=== PATIENT | male | born 1945 | race Caucasian/White ===

== ENCOUNTER 2021-08-23 11:35 | Inpatient (IN) | payer MEDICARE ==
[2021-08-23] MEDS ORDERED: ACETAMINOPHEN TAB 500 MG TAB PO STA (12:23)
[2021-08-23] MEDS ORDERED: AMPICILLIN-SULBACTAM 3 GM in SODIUM CHLORIDE 0.9% 100 ML IVPB STA (12:24)
[2021-08-23] MEDS ORDERED: VANCOMYCIN IV PER PHARMACY 1 EACH MISC MISCELLANE PRN (12:25)
--- NOTE | 2021-08-23 12:45 | XR ---
EXAMINATION TYPE: XR chest 2V DATE OF EXAM: 08/23/2021 COMPARISON: None HISTORY: 75-year-old male with fever and failure to thrive TECHNIQUE: AP and lateral views FINDINGS: Heart limits of normal in size atherosclerotic calcifications within the aortic arch. Mild hyperinfla tion. Mild patchy left basilar opacity. Some strandy right basilar atelectasis. Otherwise, no consoli dation or pleural effusion. IMPRESSION: Mild hyperinflation may relate to depth of inspiration or underlying emphysema. There is some mild pa tchy atelectasis versus developing pneumonia at the left base.
[2021-08-23] MEDS ORDERED: VANCOMYCIN 1,250 MG in SODIUM CHLORIDE 0.9% 250 ML IVPB ONE (13:00)
[2021-08-23 13:01] LABS: INR 0.9 (<1.2); Partial Thromboplastin Time 24.2 sec (22.0-30.0); Prothrombin Time 9.7 sec (9.0-12.0)
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
[2021-08-23 13:14] LABS: ALT 24 U/L (4-49); AST 38 U/L (17-59); African American GFR (CKD) >90 (>60 ml/min/1.73 sqM); Albumin 3.8 g/dL (3.5-5.0); Alkaline Phosphatase 110 U/L (38-126); Anion Gap 8 mmol/L; Blood Urea Nitrogen 11 mg/dL (9-20); Calcium 8.7 mg/dL (8.4-10.2); Carbon Dioxide 28 mmol/L (22-30); Chloride 96 mmol/L (98-107); Glucose 180 mg/dL (74-99); Non-African American GFR(CKD) 87 (>60 ml/min/1.73 sqM); Potassium 3.9 mmol/L (3.5-5.1); Sodium 132 mmol/L (137-145); Total Bilirubin 0.6 mg/dL (0.2-1.3)
[2021-08-23 13:18] LABS: HCT 46.9 % (39.0-53.0); HGB 15.9 gm/dL (13.0-17.5); MCH 32.3 pg (25.0-35.0); MCHC 33.8 g/dL (31.0-37.0); MCV 95.6 fL (80.0-100.0); Platelet Count 117 k/uL (150-450); RBC 4.91 m/uL (4.30-5.90); RDW 12.9 % (11.5-15.5); WBC 6.4 k/uL (3.8-10.6)
[2021-08-23] MEDS: SODIUM CHLORIDE 0.9% 1,000 ML IV SCH (13:20)
[2021-08-23] MEDS: valACYclovir HCL 1,000 MG TABLET PO SCH ×2 (13:21→22:51)
[2021-08-23 14:22] LABS: Lymphocytes # (M) 0.32 k/uL (1.0-4.8); Monocytes # (M) 0.58 k/uL (0-1.0); Neutrophils % (M) 86 %; Nucleated Red Blood Cells 0 /100 WBC (0-0); Total Cells Counted 100
[2021-08-23 14:23] LABS: Anisocytosis (M) Present; Poikilocytosis (M) Present
[2021-08-23] MEDS ORDERED: MORPHINE SULFATE 4 MG/ML SYRINGE IV PRN (14:44)
[2021-08-23] MEDS ORDERED: NALOXONE 0.4 MG/ML 1 ML VIAL IV PRN (14:44)
[2021-08-23] MEDS ORDERED: ACETAMINOPHEN TAB 325 MG TAB PO PRN (14:44)
[2021-08-23 20:47] LABS: Glucose,Whole Blood 103 mg/dL (75-99)
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
[2021-08-23] MEDS: AMPICILLIN-SULBACTAM 3 GM in SODIUM CHLORIDE 0.9% 100 ML IVPB SCH (22:52)
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
[2021-08-24] MEDS ORDERED: VANCOMYCIN 1,250 MG in SODIUM CHLORIDE 0.9% 250 ML IVPB SCH (03:00)
[2021-08-24] MEDS: AMPICILLIN-SULBACTAM 3 GM in SODIUM CHLORIDE 0.9% 100 ML IVPB SCH ×3 (06:06→21:23)
[2021-08-24 06:46] LABS: African American GFR (CKD) >90 (>60 ml/min/1.73 sqM); Anion Gap 3 mmol/L; Blood Urea Nitrogen 13 mg/dL (9-20); Carbon Dioxide 24 mmol/L (22-30); Chloride 105 mmol/L (98-107); Glucose 115 mg/dL (74-99); Non-African American GFR(CKD) >90 (>60 ml/min/1.73 sqM); Potassium 3.9 mmol/L (3.5-5.1); Sodium 132 mmol/L (137-145)
[2021-08-24 07:26] LABS: Glucose,Whole Blood 102 mg/dL (75-99)
[2021-08-24] MEDS: SODIUM CHLORIDE 0.9% 1,000 ML IV SCH ×2 (07:51→10:07)
[2021-08-24 09:27] LABS: Basophils # (A) 0.02 X 10*3/uL (0.00-0.10); Basophils % (A) 0.3 %; Eosinophils # (A) 0.02 X 10*3/uL (0.04-0.35); Eosinophils % (A) 0.3 %; HCT 41.5 % (39.6-50.0); HGB 13.7 g/dL (13.0-17.0); Immature Grans, Automated 0.3 %; Lymphocytes # (A) 1.43 X 10*3/uL (0.90-5.00); Lymphocytes % (A) 20.7 %; MCH 31.8 pg (27.0-32.0); MCV 96.3 fL (80.0-97.0); Mean Platelet Volume 10.3 fL (9.5-12.2); Monocytes # (A) 0.94 X 10*3/uL (0.20-1.00); Monocytes % (A) 13.6 %; NRBC Per 100 WBC 0 /100 WBCS (0.0-0.0); Neutrophils # (A) 4.49 X 10*3/uL (1.80-7.70); Neutrophils % (A) 64.8 %; Platelet Count 107 X 10*3/uL (140-440); RBC 4.31 X 10*6/uL (4.40-5.60); RDW 12.6 % (11.5-14.5); WBC 6.92 X 10*3/uL (4.50-10.00)
[2021-08-24] MEDS: valACYclovir HCL 1,000 MG TABLET PO SCH ×2 (11:33→21:23)
[2021-08-24] MEDS: HEPARIN SODIUM,PORCINE/PF 5,000 UNIT/0.5 ML SYRINGE SQ SCH ×2 (11:33→21:23)
[2021-08-24 11:49] LABS: Glucose,Whole Blood 119 mg/dL (75-99)
[2021-08-24 17:34] LABS: Glucose,Whole Blood 135 mg/dL (75-99)
[2021-08-24 20:54] LABS: Glucose,Whole Blood 233 mg/dL (75-99)
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
[2021-08-25] MEDS: AMPICILLIN-SULBACTAM 3 GM in SODIUM CHLORIDE 0.9% 100 ML IVPB SCH (05:31)
[2021-08-25] MEDS: SODIUM CHLORIDE 0.9% 1,000 ML IV SCH ×2 (05:31→17:38)
[2021-08-25 07:39] LABS: Glucose,Whole Blood 109 mg/dL (75-99)
[2021-08-25] MEDS: HEPARIN SODIUM,PORCINE/PF 5,000 UNIT/0.5 ML SYRINGE SQ SCH ×2 (08:33→19:41)
[2021-08-25] MEDS: valACYclovir HCL 1,000 MG TABLET PO SCH ×3 (08:34→23:13)
[2021-08-25 11:44] LABS: Glucose,Whole Blood 125 mg/dL (75-99)
[2021-08-25] MEDS ORDERED: SERTRALINE 25 MG TAB PO STA (13:00)
--- NOTE | 2021-08-25 13:16 | P.CN ---
Psychiatric Consult - . Consult date: 08/25/21 Consult:: 08/25/21 13:15 IDENTIFYING DATA: This patient is a , on Social Security, 75-year-old male with no significant psychiatric history who presented to the hospital for a wound over his left chest. HISTORY OF PRESENT ILLNESS: The patient presented to the hospital on 08/23/2021 for wound over his left chest. The patient is a limited historian due to his difficulty with hearing as well as his baseline mental status. Psychiatry has been consulted for evaluation of depression, mental capacity, and dementia. Upon evaluation by this provider, the patient is alert and oriented to self only. He believes that he was currently in [place] and was limited in providing any significant history. He replied in one word answers and often not in context with the question being asked of him. The patient however was able to identify his son as somebody who can provide history. This provider spoke with the patient's son Kyle Castano Jr reports that the patient has been displaying signs of depression since his 11 years ago. The son reports that the patient spends most of his day sleeping in, and refusing to get out of bed. He reports that furthermore the patient has not been showering or addressing any of his hygiene. He denies any history of suicidal or homicidal ideation, intention, and/or plan from the patient. In regards to patient behaviors, the patient's son notes that the patient has significant history of a gambling problem. He reports that this patient lives with him currently because the patient was left his own devices, he would waste all his money on scratch cards. The patient's son does not identify any significant history of psychosis or bipolar disorder. PAST PSYCHIATRIC HISTORY: As per son, the patient has no significant psychiatric history. Patient's son reports that the patient has not been previously prescribed any psychotropic medications to his knowledge. The patient's son reports that the patient has not had any previous psychiatric hospitalizations. The patient's son reports that the patient has no previous suicide attempts to his knowledge or is open with any outpatient psychiatric treatment. PAST MEDICAL HISTORY: Past Medical History: No Reported History History of Any Multi-Drug Resistant Organisms: None Reported Past Surgical History: No Surgical Hx Reported Past Psychological History: Unable to Obtain Smoking Status: Current every day smoker Past Alcohol Use History: None Reported Past Drug Use History: None Reported ALLERGIES: NO KNOWN DRUG ALLERGIES CHEMICAL DEPENDENCY HISTORY: The patient's son reports that the patient smokes approximate one pack per day of tobacco. He reports that the patient stop drinking approximately year ago. He denies any significant history of marijuana or illicit drug use. However, the patient's son is concerned with the patient's caffeine intake and reports that the patient drinks a significant amount of caffeine (>5 caffeinated beverages a day). FAMILY PSYCHIATRIC/SUBSTANCE USE HISTORY: The patient's son reports that there is a family history of depression. SOCIAL HISTORY: Patient is after his 11 years ago at age 66. He currently lives with his son. He is currently receiving Social Security. The patient's son reports that his mother who works at [employer] was the main source of income in the family. MENTAL STATUS EXAM Appearance: Patient appears to be stated age is alert, pleasant, and attempts to cooperate Patient appears to have poor hygiene and grooming wearing hospital gown with fair eye contact. Behavior: Patient is calmly lying in bed without any agitated behavior. Patient is hard of hearing. Speech: Patient's speech is nonspontaneous and also with one-word replies that are not in context with the questions being asked. Mood/Affect: Patient reports their mood is "okay", affect is blunted. Suicidality/Homicidality: Patient denies having any suicidal or homicidal ideation intent or plan. Perceptions: Unable to assess. Though content/process: Unable to assess thought content. [place] and minimal. Memory and concentration: Patient is alert and oriented to self only. Concentration appears to be grossly poor. Judgment and insight: Poor. IMPRESSIONS: Major depressive disorder, recurrent, moderate to severe Vitamin B12 deficiency Neurocognitive disorder, unspecified PLAN: -At this time patient DOES NOT meet criteria for inpatient psychiatric admission. -At this time, the patient appears to not have capacity for medical decision- making. He is unable to appropriately state his condition for which she is being treated for as well as the risks, benefits, and treatment alternatives. -Delirium precautions recommended with patient including - avoiding use of narcotics and [employer] PIL[employer] sedatives, limit anticholinergic medications when possible, frequent re-orientation, minimize use of restraints, open window shades during the day and close them at night -Would recommend the following medication changes/additions: We will start Zoloft 12.5 milligrams by mouth daily for depression/anxiety with plans to titrate 25 mg tomorrow -Will continue to follow along 08/25/21 13:16
[2021-08-25 17:24] LABS: Glucose,Whole Blood 81 mg/dL (75-99)
[2021-08-25 20:48] LABS: Glucose,Whole Blood 131 mg/dL (75-99)
--- NOTE | 2021-08-25 22:18 | P.PN ---
Subjective Progress Note Date: 08/24/21 Principal diagnosis: Left upper chest herpes zoster Patient is a 75-year-old male presenting to the hospital with vesicular rash involving the left upper chest and some extension to the left upper arm patient had been diagnosed with herpes zoster. On today's evaluation that is 08/24/2021, the patient denies having any fever or chills, denies any worsening pain to the left upper chest rash area no worsening rash has been noticed for nausea no vomiting no abdominal pain and no diarrhea Objective - Vital Signs Vital signs: Vital Signs Temp 97.3 F L 08/24/21 07:59 Pulse 80 08/24/21 07:59 Resp 18 08/24/21 07:59 BP 93/51 08/24/21 07:59 Pulse Ox 96 08/24/21 07:59 Intake & Output 08/23/21 08/24/21 08/24/21 18:59 06:59 18:59 Intake Total 200 Balance 200 Weight 74.843 kg Intake: Oral 200 Other: Voiding Method Diaper Diaper Incontinent Incontinent # Voids 2 2 - Exam General description is an elderly male lying in bed in no distress. Respiratory system:Unlabored breathing, decreased intensity in breath sounds. No wheeze. Heart S1, S2. Regular rate and rhythm. Abdomen soft, no tenderness. SKIN: Left upper chest and left upper arm rash with no extension no significant redness - Labs CBC & Chem 7: 08/24/21 06:11 08/24/21 06:11 Labs: Abnormal Lab Results - Last 24 Hours (Table) 08/23/21 08/23/21 08/23/21 Range/Units 12:26 12:26 12:26 RBC (4.40-5.60) X 10*6/uL Plt Count 117 L (150-450) k/uL Lymphocytes # (Manual) 0.32 L (1.0-4.8) k/uL Eosinophils # (0.04-0.35) X 10*3/uL Sodium 132 L (137-145) mmol/L Chloride 96 L (98-107) mmol/L Glucose 180 H (74-99) mg/dL POC Glucose (mg/dL) (75-99) mg/dL Plasma Lactic Acid Pierre 2.7 H* (0.7-2.0) mmol/L Calcium (8.4-10.2) mg/dL 08/23/21 08/24/21 08/24/21 Range/Units 20:46 06:11 06:11 RBC 4.31 L (4.40-5.60) X 10*6/uL Plt Count 107 L (150-450) k/uL Lymphocytes # (Manual) (1.0-4.8) k/uL Eosinophils # 0.02 L (0.04-0.35) X 10*3/uL Sodium 132 L (137-145) mmol/L Chloride (98-107) mmol/L Glucose 115 H (74-99) mg/dL POC Glucose (mg/dL) 103 H (75-99) mg/dL Plasma Lactic Acid Pierre (0.7-2.0) mmol/L Calcium 8.0 L (8.4-10.2) mg/dL 08/24/21 Range/Units 07:24 RBC (4.40-5.60) X 10*6/uL Plt Count (150-450) k/uL Lymphocytes # (Manual) (1.0-4.8) k/uL Eosinophils # (0.04-0.35) X 10*3/uL Sodium (137-145) mmol/L Chloride (98-107) mmol/L Glucose (74-99) mg/dL POC Glucose (mg/dL) 102 H (75-99) mg/dL Plasma Lactic Acid Pierre (0.7-2.0) mmol/L Calcium (8.4-10.2) mg/dL Assessment and Plan (1) Herpes zoster Current Visit: Yes Status: Acute Code(s): B02.9 - ZOSTER WITHOUT COMPLICATIONS SNOMED Code(s): 1436724 Plan: 1-patient with left upper chest herpes zoster clinically suspicious low for secondary cellulitis patient is currently covered with the Valtrex to continue and monitor clinical course closely Time with Patient: Less than 30
--- NOTE | 2021-08-25 22:20 | P.PN ---
Subjective Progress Note Date: 08/25/21 Principal diagnosis: Left upper chest herpes zoster Patient is a 75-year-old male presenting to the hospital with vesicular rash involving the left upper chest and some extension to the left upper arm patient had been diagnosed with herpes zoster. On today's evaluation that is 08/25/2021, the patient remains to be afebrile, the patient denies any worsening pain to the left upper chest rash area and there is no worsening rash has been noticed for nausea no vomiting no abdominal pain and no diarrhea Objective - Vital Signs Vital signs: Vital Signs Temp 97.5 F L 08/25/21 05:00 Pulse 85 08/25/21 05:00 Resp 20 08/25/21 05:00 BP 112/52 08/25/21 05:00 Pulse Ox 97 08/25/21 05:00 Intake & Output 08/24/21 08/25/21 08/25/21 18:59 06:59 18:59 Intake Total 700 1300 Balance 700 1300 Intake: Intake, IV Titration 700 1100 Amount Ampicillin-Sulbactam 3 gm 200 200 In Sodium Chloride 0.9% 100 ml @ 200 mls/hr IVPB Q8H TOM Rx#:[id number] Sodium Chloride 0.9% 1, 900 000 ml @ 80 mls/hr IV . [id number] TOM Rx#:[id number] Vancomycin 1,250 mg In 500 Sodium Chloride 0.9% 250 ml @ 125 mls/hr IVPB Q12H TOM Rx#:[id number] Oral 200 Other: Voiding Method Diaper Diaper Incontinent Incontinent # Voids 5 # Bowel Movements 1 - Exam General description is an elderly male lying in bed in no distress. Respiratory system:Unlabored breathing, decreased intensity in breath sounds. No wheeze. Heart S1, S2. Regular rate and rhythm. Abdomen soft, no tenderness. SKIN: Left upper chest and left upper arm rash with no extension no significant redness - Labs CBC & Chem 7: 08/24/21 06:11 08/24/21 06:11 Labs: Abnormal Lab Results - Last 24 Hours (Table) 08/24/21 08/24/21 08/24/21 Range/Units 06:11 11:43 17:33 POC Glucose (mg/dL) 119 H 135 H (75-99) mg/dL Vitamin B12 172.0 L (200.0-944.0) pg/mL 08/24/21 08/25/21 Range/Units 20:52 07:37 POC Glucose (mg/dL) 233 H 109 H (75-99) mg/dL Vitamin B12 (200.0-944.0) pg/mL Microbiology - Last 24 Hours (Table) 08/23/21 12:10 Blood Culture - Preliminary Blood No Growth after 24 hours 08/23/21 11:55 Blood Culture - Preliminary Blood No Growth after 24 hours Assessment and Plan (1) Herpes zoster Current Visit: Yes Status: Acute Code(s): B02.9 - ZOSTER WITHOUT COMPLICATIONS SNOMED Code(s): 1489683 Plan: 1-patient with left upper chest herpes zoster clinically suspicious low for secondary cellulitis, we will discontinue Unasyn and the patient will continue with the Valtrex to continue and monitor clinical course closely
--- NOTE | 2021-08-26 00:06 | P.PN ---
Subjective Progress Note Date: 08/25/21 Patient is a 75-year-old male with a known history of dementia was brought to the hospital by his son due to wound on his left upper chest wall. Patient is hard of hearing and also unable to provide good history. Patient son states that he went out in the weekend for snowmobiling and came back home and found that his father had a significant wound on his left upper chest wall. He has been scratching at it. No nausea vomiting or diarrhea. No cough or sputum production.. Patient is also confused and leaves the house and found wandering and son is having difficulty taking care of him. On admission blood pressure 124/80 pulse is 85 respiration 20 pulse ox 97% on room air and fever with T-max 100.4 Chest x-ray showed mild hyperinflation may relate to depth of inspiration or underlying emphysema. There is some mild patchy atelectasis versus developing pneumonia at the left base. EKG showed normal sinus rhythm. Laboratory data showed WBC 6.4 hemoglobin 15.9 platelets 117 lymphocytes 0.32 Sodium 132 potassium 3.9 chloride 96 bicarb is 28 BUN 11 creatinine 0.82 blood sugar 180 lactic acid 2.7 AST 38 ALT 24 alk phos 110 PCR coronavirus PCR not detected. 08/24/2021 Patient is seen in follow-up this morning with infectious disease consulted and following. Patient is maintained on IV antibiotics in the form of Unasyn and vanco has been discontinued. Patient also continues on oral valtrex. Patient is eating with no reports of nausea or vomiting noted. Patient is weak and will have PT/OT evaluate. Case management and social work following. Possible ECF being planned. 08/25/2021 Patient is seen today and continues on IV unasyn and valtrex and ID following closely. Discussed with ID about requiring abx on discharge and unasyn being discontinued. Patient will need one week of valtrex and local wound care. No signs of worsening rash and patient denies itching. Patient son working on possible guardianship and social work following and working on possible ecf for a safe discharge plan. Awaiting PT/OT notes. Psychiatry consulted to evaluate mental capacity and depression as son is also concerned that his depression is not being treated properly. Vitamin b12 low and will start supplement. Review of systems: unable to obtain as patient is confused. Active Medications Acetaminophen (Acetaminophen Tab 325 Mg Tab) 650 mg PO Q6HR PRN PRN Reason: Mild Pain or Fever > 100.5 Cyanocobalamin (Cyanocobalamin 500 Mcg Tab) 500 mcg PO DAILY PENDING SALE TO [facility] Heparin Sodium (Porcine) (Heparin Sodium,Porcine/Pf 5,000 Unit/0.5 Ml Syringe) 5,000 unit SQ Q12HR PENDING SALE TO [facility] Last Admin: 08/25/21 19:41 Dose: 5,000 unit Documented by: Sodium Chloride (Saline 0.9%) 1,000 mls @ 80 mls/hr IV .[id number] PENDING SALE TO [facility] Last Admin: 08/25/21 17:38 Dose: Not Given Documented by: Morphine Sulfate (Morphine Sulfate 4 Mg/Ml Syringe) 4 mg IV Q4HR PRN PRN Reason: Severe Pain Naloxone HCl (Naloxone 0.4 Mg/Ml 1 Ml Vial) 0.2 mg IV Q2M PRN PRN Reason: Opioid Reversal Sertraline HCl (Sertraline 25 Mg Tab) 25 mg PO DAILY PENDING SALE TO [facility] Valacyclovir HCl (Valacyclovir Hcl 1,000 Mg Tablet) 1,000 mg PO Q8HR PENDING SALE TO [facility] Last Admin: 08/25/21 23:13 Dose: 1,000 mg Documented by: Physical exam: Patient is sitting up in the bed comfortably, no acute distress, awake alert x1-2. Hard of hearing. Answers with "ok" to questions and commands HEENT: Normocephalic. Neck is supple. Pupils reactive. Nostrils clear. Oral cavity is moist. Neck reveals no JVD, carotid bruits, or thyromegaly. CHEST EXAMINATION: Trachea is central. Symmetrical expansion. Lung villegas clear to auscultation and percussion. Patient does have left upper chest wall showing peeled off multiple scabs and redness. No new vesicular lesions.. CARDIAC: Normal S1, S2 with no gallops. No murmurs ABDOMEN: Soft. Bowel sounds normal. No organomegaly. No abdominal bruits. Extremities: reveal no edema. No clubbing or cyanosis Neurologically awake, alert, oriented x1 with well-coordinated movements. Hard of hearing. No gross focal deficits noted Skin: No rash or skin lesions. Psychiatric: Cooperative. Could not be assessed completely. Musculoskeletal: No joint swelling or deformity. Assessment: Left upper chest wall crusted vesicular lesions possible shingles rash. Superimposed bacterial infection cannot be excluded. Lactic acidosis, improved Hypovolemic hyponatremia, improving Dementia Depression Failure to thrive DVT prophylaxis Heparin subcu full code Plan: Patient will be continued on IV hydration and encouraged oral intake. Patient is afebrile and on room air. Continue valacyclovir. ID following and discontinued Unasyn. Benadryl as needed for itching. Patient appropriate per nursing staff today and cooperative. Psychiatry consulted and pending at this time. PT OT to work with the patient and social work following and working on possible ECF. Son possibly applying for guardianship. Will repeat am labs. Prognosis is guarded. Objective - Vital Signs Vital signs: Vital Signs Temp 97.5 F L 08/25/21 05:00 Pulse 85 08/25/21 05:00 Resp 20 08/25/21 05:00 BP 112/52 08/25/21 05:00 Pulse Ox 97 08/25/21 05:00 Intake & Output 08/24/21 08/25/21 08/25/21 18:59 06:59 18:59 Intake Total 700 1300 Balance 700 1300 Intake: Intake, IV Titration 700 1100 Amount Ampicillin-Sulbactam 3 gm 200 200 In Sodium Chloride 0.9% 100 ml @ 200 mls/hr IVPB Q8H TOM Rx#:[id number] Sodium Chloride 0.9% 1, 900 000 ml @ 80 mls/hr IV . [id number] TOM Rx#:[id number] Vancomycin 1,250 mg In 500 Sodium Chloride 0.9% 250 ml @ 125 mls/hr IVPB Q12H TOM Rx#:[id number] Oral 200 Other: Voiding Method Diaper Diaper Incontinent Incontinent # Voids 5 # Bowel Movements 1 - Labs CBC & Chem 7: 08/24/21 06:11 08/24/21 06:11 Labs: Abnormal Lab Results - Last 24 Hours (Table) 08/24/21 08/24/21 08/24/21 Range/Units 06:11 06:11 11:43 RBC 4.31 L (4.40-5.60) X 10*6/uL Plt Count 107 L (140-440) X 10*3/uL Eosinophils # 0.02 L (0.04-0.35) X 10*3/uL POC Glucose (mg/dL) 119 H (75-99) mg/dL Vitamin B12 172.0 L (200.0-944.0) pg/mL 08/24/21 08/24/21 08/25/21 Range/Units 17:33 20:52 07:37 RBC (4.40-5.60) X 10*6/uL Plt Count (140-440) X 10*3/uL Eosinophils # (0.04-0.35) X 10*3/uL POC Glucose (mg/dL) 135 H 233 H 109 H (75-99) mg/dL Vitamin B12 (200.0-944.0) pg/mL Microbiology - Last 24 Hours (Table) 08/23/21 12:10 Blood Culture - Preliminary Blood No Growth after 24 hours 08/23/21 11:55 Blood Culture - Preliminary Blood No Growth after 24 hours
[2021-08-26] MEDS: SODIUM CHLORIDE 0.9% 1,000 ML IV SCH ×2 (05:04→20:12)
[2021-08-26 05:51] LABS: Basophils % (A) 0 %; Eosinophils # (A) 0.1 k/uL (0-0.7); Eosinophils % (A) 1 %; Lymphocytes % (A) 15 %; MCH 32.1 pg (25.0-35.0); MCHC 33.3 g/dL (31.0-37.0); MCV 96.4 fL (80.0-100.0); Mean Platelet Volume 7.8; Monocytes # (A) 0.4 k/uL (0-1.0); Monocytes % (A) 7 %; Neutrophils # (A) 5.1 k/uL (1.3-7.7); Neutrophils % (A) 75 %; Platelet Count 154 k/uL (150-450); RBC 4.05 m/uL (4.30-5.90); RDW 12.7 % (11.5-15.5); WBC 6.8 k/uL (3.8-10.6)
[2021-08-26 06:28] LABS: African American GFR (CKD) >90 (>60 ml/min/1.73 sqM); Anion Gap 2 mmol/L; Blood Urea Nitrogen 14 mg/dL (9-20); Calcium 7.8 mg/dL (8.4-10.2); Carbon Dioxide 22 mmol/L (22-30); Chloride 108 mmol/L (98-107); Glucose 115 mg/dL (74-99); Non-African American GFR(CKD) >90 (>60 ml/min/1.73 sqM); Potassium 4.1 mmol/L (3.5-5.1); Sodium 132 mmol/L (137-145)
[2021-08-26 07:43] LABS: Glucose,Whole Blood 102 mg/dL (75-99)
[2021-08-26] MEDS ORDERED: THIAMINE 100 MG TAB PO SCH (09:00)
[2021-08-26] MEDS: CYANOCOBALAMIN 500 MCG TAB PO SCH (09:23)
[2021-08-26] MEDS: valACYclovir HCL 1,000 MG TABLET PO SCH ×3 (09:23→23:23)
[2021-08-26] MEDS: SERTRALINE 25 MG TAB PO SCH (09:23)
[2021-08-26] MEDS: HEPARIN SODIUM,PORCINE/PF 5,000 UNIT/0.5 ML SYRINGE SQ SCH ×2 (09:24→20:12)
[2021-08-26 12:20] LABS: Glucose,Whole Blood 118 mg/dL (75-99)
--- NOTE | 2021-08-26 13:46 | P.PN ---
Progress Note - Text Progress Note Date: 08/26/21 Interval History: Patient was seen resting in bed and was directable and agreeable to speak with assembly instructions writer in his room. The patient is a limited historian at this time. The patient has been adherent to his medication is not reporting any significant side effects to this provider. He is currently not reporting any suicidal or homicidal ideation, intention, and/or plan. He is denying any auditory or visual hallucinations. The patient reports no issues regarding his sleep or his appetite. Mental Status Exam: General Appearance: Patient appears to be stated age is alert, directable, and cooperative. Behavior: Patient is calmly lying down in bed without any agitated behavior. Eye contact is appropriate. Speech: Patient's speech is nonspontaneous and mostly with one-word answers. Mood/Affect: Mood is improving mildly, affect is with an increased range today. Suicidal/Homicidal: Patient denies having any suicidal or homicidal ideation intent or plan. Perceptions: Patient denies any visual hallucinations and denies any auditory hallucinations Though content/process: There is no evidence of any delusional thought content and thought process is linear and goal-directed. Memory and concentration: AOX1 -to person only , grossly intact for the purposes of this session Judgment and insight: Improving mildly Assessment Major depressive disorder, recurrent, moderate to severe Vitamin B12 deficiency Neurocognitive disorder, unspecified Plan: -At this time patient DOES NOT meet criteria for inpatient psychiatric admission. The patient does display significant improvement in his range of affect is much more spontaneous with this provider. He has been adherent with his medication is not endorsing any significant side effects at this time. -Delirium precautions recommended with patient including - avoiding use of narcotics and [employer] sedatives, limit anticholinergic medications when possible, frequent re-orientation, minimize use of restraints, open window shades during the day and close them at night -Would recommend the following medication changes/additions: Continue Zoloft 25 mg daily for depression/anxiety. -Psychiatry will sign off at this time. Thank you for this consult.
[2021-08-26 17:06] LABS: Glucose,Whole Blood 91 mg/dL (75-99)
[2021-08-26 20:19] LABS: Glucose,Whole Blood 87 mg/dL (75-99)
--- NOTE | 2021-08-26 23:31 | P.PN ---
Subjective Progress Note Date: 08/26/21 Patient is a 75-year-old male with a known history of dementia was brought to the hospital by his son due to wound on his left upper chest wall. Patient is hard of hearing and also unable to provide good history. Patient son states that he went out in the weekend for snowmobiling and came back home and found that his father had a significant wound on his left upper chest wall. He has been scratching at it. No nausea vomiting or diarrhea. No cough or sputum production.. Patient is also confused and leaves the house and found wandering and son is having difficulty taking care of him. On admission blood pressure 124/80 pulse is 85 respiration 20 pulse ox 97% on room air and fever with T-max 100.4 Chest x-ray showed mild hyperinflation may relate to depth of inspiration or underlying emphysema. There is some mild patchy atelectasis versus developing pneumonia at the left base. EKG showed normal sinus rhythm. Laboratory data showed WBC 6.4 hemoglobin 15.9 platelets 117 lymphocytes 0.32 Sodium 132 potassium 3.9 chloride 96 bicarb is 28 BUN 11 creatinine 0.82 blood sugar 180 lactic acid 2.7 AST 38 ALT 24 alk phos 110 PCR coronavirus PCR not detected. 08/24/2021 Patient is seen in follow-up this morning with infectious disease consulted and following. Patient is maintained on IV antibiotics in the form of Unasyn and vanco has been discontinued. Patient also continues on oral valtrex. Patient is eating with no reports of nausea or vomiting noted. Patient is weak and will have PT/OT evaluate. Case management and social work following. Possible ECF being planned. 08/25/2021 Patient is seen today and continues on IV unasyn and valtrex and ID following closely. Discussed with ID about requiring abx on discharge and unasyn being discontinued. Patient will need one week of valtrex and local wound care. No signs of worsening rash and patient denies itching. Patient son working on possible guardianship and social work following and working on possible ecf for a safe discharge plan. Awaiting PT/OT notes. Psychiatry consulted to evaluate mental capacity and depression as son is also concerned that his depression is not being treated properly. Vitamin b12 low and will start supplement. 08/26/2021 Patient is seen this morning and in no acute distress. On exam, patient needed constant redirection to avoid picking and scratching at the rash on the chest and patient was asking about when he will be going home and what medications he will continue on when discharged. ID and psychiatry following. Patient is continued on zoloft and tolerating thus far. Patient also continues on valtrex and Unasyn has been discontinued. WBC within normal limits and patient is afebrile. No reports of chest pain or shortness of breath. Review of systems: unable to obtain as patient is confused. Labs: WBC is 6.8, hemoglobin is 13.0, platelets are 154, sodium is 132, potassium is 4.1, bun is 14, cr is 0.60, calcium is 7.8 Active Medications Acetaminophen (Acetaminophen Tab 325 Mg Tab) 650 mg PO Q6HR PRN PRN Reason: Mild Pain or Fever > 100.5 Cyanocobalamin (Cyanocobalamin 500 Mcg Tab) 500 mcg PO DAILY [facility] Last Admin: 08/26/21 09:23 Dose: 500 mcg Documented by: Heparin Sodium (Porcine) (Heparin Sodium,Porcine/Pf 5,000 Unit/0.5 Ml Syringe) 5,000 unit SQ Q12HR [facility] Last Admin: 08/26/21 20:12 Dose: 5,000 unit Documented by: Sodium Chloride (Saline 0.9%) 1,000 mls @ 80 mls/hr IV .[id number] [facility] Last Admin: 08/26/21 20:12 Dose: 80 mls/hr Documented by: Morphine Sulfate (Morphine Sulfate 4 Mg/Ml Syringe) 4 mg IV Q4HR PRN PRN Reason: Severe Pain Naloxone HCl (Naloxone 0.4 Mg/Ml 1 Ml Vial) 0.2 mg IV Q2M PRN PRN Reason: Opioid Reversal Sertraline HCl (Sertraline 25 Mg Tab) 25 mg PO DAILY [facility] Last Admin: 08/26/21 09:23 Dose: 25 mg Documented by: Valacyclovir HCl (Valacyclovir Hcl 1,000 Mg Tablet) 1,000 mg PO Q8HR [facility] Last Admin: 08/26/21 16:36 Dose: 1,000 mg Documented by: Physical exam: Patient is sitting up in the bed comfortably, no acute distress, awake alert x1- 2. Hard of hearing. HEENT: Normocephalic. Neck is supple. Pupils reactive. Nostrils clear. Oral cavity is moist. Neck reveals no JVD, carotid bruits, or thyromegaly. CHEST EXAMINATION: Trachea is central. Symmetrical expansion. Lung villegas clear to auscultation and percussion. Patient does have left upper chest wall showing peeled off multiple scabs and redness. No new vesicular lesions.. open lesions noted due to picking with no surrounding redness or drainage noted CARDIAC: Normal S1, S2 with no gallops. No murmurs ABDOMEN: Soft. Bowel sounds normal. No organomegaly. No abdominal bruits. Extremities: reveal no edema. No clubbing or cyanosis Neurologically awake, alert, oriented x1 with well-coordinated movements. Hard of hearing. No gross focal deficits noted Skin: as mentioned above Psychiatric: Cooperative. Could not be assessed completely. Musculoskeletal: No joint swelling or deformity. Assessment: Left upper chest wall crusted vesicular lesions possible shingles rash. Superimposed bacterial infection cannot be excluded. Lactic acidosis, improved Hypovolemic hyponatremia, improving Dementia Depression Failure to thrive DVT prophylaxis Heparin subcu full code Plan: Patient will be continued on IV hydration and encouraged oral intake. Patient is afebrile and WBC remains within normal limits and IV unasyn being discontinued. ID following closely and patient will need one week of valacyclovir on discharge . Benadryl as needed for itching. Patient appropriate per nursing staff today and cooperative. Psychiatry evaluated the patient and will as needed. Patient started on Zoloft and tolerating thus far. PT OT to work with the patient and social work following and working on possible ECF. [place] reviewing. Son Kyle applying for guardianship as patient is unable to make safe decisions for himself. Prognosis is guarded. Objective - Vital Signs Vital signs: Vital Signs Temp 98.8 F 08/26/21 03:51 Pulse 74 08/26/21 03:51 Resp 18 08/26/21 03:51 BP 124/81 08/26/21 03:51 Pulse Ox 96 08/26/21 03:51 Intake & Output 08/25/21 08/26/21 08/26/21 18:59 06:59 18:59 Intake Total 1400 Balance 1400 Intake: Intake, IV Titration 900 Amount Sodium Chloride 0.9% 1, 900 000 ml @ 80 mls/hr IV . [id number] [facility] Rx#:[id number] Oral 500 Other: Voiding Method Diaper Diaper Incontinent Incontinent # Voids 3 # Bowel Movements 1 1 - Labs CBC & Chem 7: 08/26/21 05:31 08/26/21 05:31 Labs: Abnormal Lab Results - Last 24 Hours (Table) 08/25/21 08/25/21 08/26/21 Range/Units 11:31 20:46 05:31 RBC 4.05 L (4.30-5.90) m/uL Sodium (137-145) mmol/L Chloride (98-107) mmol/L Creatinine (0.66-1.25) mg/dL Glucose (74-99) mg/dL POC Glucose (mg/dL) 125 H 131 H (75-99) mg/dL Calcium (8.4-10.2) mg/dL 08/26/21 08/26/21 Range/Units 05:31 07:42 RBC (4.30-5.90) m/uL Sodium 132 L (137-145) mmol/L Chloride 108 H (98-107) mmol/L Creatinine 0.60 L (0.66-1.25) mg/dL Glucose 115 H (74-99) mg/dL POC Glucose (mg/dL) 102 H (75-99) mg/dL Calcium 7.8 L (8.4-10.2) mg/dL Microbiology - Last 24 Hours (Table) 08/23/21 11:55 Blood Culture - Preliminary Blood No Growth after 48 hours 08/23/21 12:10 Blood Culture - Preliminary Blood No Growth after 48 hours
--- NOTE | 2021-08-26 23:32 | P.PN ---
Subjective Progress Note Date: 08/26/21 Principal diagnosis: Left upper chest herpes zoster Patient is a 75-year-old male presenting to the hospital with vesicular rash involving the left upper chest and some extension to the left upper arm patient had been diagnosed with herpes zoster. On today's evaluation that is 08/26/2021, the patient continues to be afebrile, the patient pain to the left upper chest rash area is currently controlled , denies worsening rash , no nausea no vomiting no abdominal pain and no diarrhea Objective - Vital Signs Vital signs: Vital Signs Temp 98.9 F 08/26/21 12:44 Pulse 91 08/26/21 12:44 Resp 19 08/26/21 12:44 BP 103/66 08/26/21 12:44 Pulse Ox 94 L 08/26/21 12:44 Intake & Output 08/25/21 08/26/21 08/26/21 18:59 06:59 18:59 Intake Total 1400 Balance 1400 Intake: Intake, IV Titration 900 Amount Sodium Chloride 0.9% 1, 900 000 ml @ 80 mls/hr IV . [id number] [facility] Rx#:[id number] Oral 500 Other: Voiding Method Diaper Diaper Diaper Incontinent Incontinent Incontinent # Voids 3 # Bowel Movements 1 1 - Exam General description is an elderly male lying in bed in no distress. Respiratory system:Unlabored breathing, decreased intensity in breath sounds. No wheeze. Heart S1, S2. Regular rate and rhythm. Abdomen soft, no tenderness. SKIN: Left upper chest and left upper arm rash with no extension no significant redness - Labs CBC & Chem 7: 08/26/21 05:31 08/26/21 05:31 Labs: Abnormal Lab Results - Last 24 Hours (Table) 08/25/21 08/26/21 08/26/21 Range/Units 20:46 05:31 05:31 RBC 4.05 L (4.30-5.90) m/uL Sodium 132 L (137-145) mmol/L Chloride 108 H (98-107) mmol/L Creatinine 0.60 L (0.66-1.25) mg/dL Glucose 115 H (74-99) mg/dL POC Glucose (mg/dL) 131 H (75-99) mg/dL Calcium 7.8 L (8.4-10.2) mg/dL 08/26/21 08/26/21 Range/Units 07:42 12:19 RBC (4.30-5.90) m/uL Sodium (137-145) mmol/L Chloride (98-107) mmol/L Creatinine (0.66-1.25) mg/dL Glucose (74-99) mg/dL POC Glucose (mg/dL) 102 H 118 H (75-99) mg/dL Calcium (8.4-10.2) mg/dL Microbiology - Last 24 Hours (Table) 08/23/21 12:10 Blood Culture - Preliminary Blood No Growth after 72 hours 08/23/21 11:55 Blood Culture - Preliminary Blood No Growth after 72 hours Assessment and Plan (1) Herpes zoster Current Visit: Yes Status: Acute Code(s): B02.9 - ZOSTER WITHOUT CO MPLICATIONS SNOMED Code(s): 0856580 Plan: 1-patient with left upper chest herpes zoster clinically suspicious low for secondary cellulitis, the patient will continue with the Valtrex to finish 7 day course of therapy and monitor clinical course closely Time with Patient: Less than 30
[2021-08-27] MEDS: SODIUM CHLORIDE 0.9% 1,000 ML IV SCH (05:52)
[2021-08-27 07:11] LABS: Glucose,Whole Blood 96 mg/dL (75-99)
[2021-08-27] MEDS: valACYclovir HCL 1,000 MG TABLET PO SCH (07:53)
[2021-08-27] MEDS: HEPARIN SODIUM,PORCINE/PF 5,000 UNIT/0.5 ML SYRINGE SQ SCH (07:53)
[2021-08-27] MEDS: CYANOCOBALAMIN 500 MCG TAB PO SCH (07:53)
[2021-08-27] MEDS: SERTRALINE 25 MG TAB PO SCH (07:53)
[2021-08-27 11:14] LABS: Glucose,Whole Blood 124 mg/dL (75-99)
[2021-08-27 11:34] VITALS: BP 118/68; PULSE 68; RESP 16; TEMP 98.1
--- NOTE | 2021-08-27 14:24 | P.DS ---
Providers Date of admission: 08/23/21 14:44 Expected date of discharge: 08/27/21 Attending physician: Daron Marroquin MD Consults: 08/23/21 14:45 Consult Physician Urgent Consulting Provider: Tiffani Bruno Consult Reason/Comments: left chest wall cellulitis, suspected herpes zoster Do you want consulting provider notified?: Yes 08/25/21 10:48 Consult Physician Urgent Consulting Provider: Nadeem Philip Consult Reason/Comments: depression, mental capacity, dementia Do you want consulting provider notified?: Yes Primary care physician: Stated None Hospital Course: Discharge diagnosis Left upper chest wall crusted vesicular lesions possible shingles rash. Improved.. Lactic acidosis, improved Hypovolemic hyponatremia, improving Dementia Depression started on Zoloft Vitamin B12 deficiency level 172 Failure to thrive DVT prophylaxis Heparin subcu full code Hospital course Patient is a 75-year-old male with a known history of dementia was brought to the hospital by his son due to wound on his left upper chest wall. Patient is hard of hearing and also unable to provide good history. Patient son states that he went out in the weekend for snowmobiling and came back home and found that his father had a significant wound on his left upper chest wall. He has been scratching at it. No nausea vomiting or diarrhea. No cough or sputum production.. Patient is also confused and leaves the house and found wandering and son is having difficulty taking care of him. On admission blood pressure 124/80 pulse is 85 respiration 20 pulse ox 97% on room air and fever with T-max 100.4 Chest x-ray showed mild hyperinflation may relate to depth of inspiration or underlying emphysema. There is some mild patchy atelectasis versus developing pneumonia at the left base. EKG showed normal sinus rhythm. Laboratory data showed WBC 6.4 hemoglobin 15.9 platelets 117 lymphocytes 0.32 Sodium 132 potassium 3.9 chloride 96 bicarb is 28 BUN 11 creatinine 0.82 blood sugar 180 lactic acid 2.7 AST 38 ALT 24 alk phos 110 PCR coronavirus PCR not detected. 08/24/2021 Patient is seen in follow-up this morning with infectious disease consulted and following. Patient is maintained on IV antibiotics in the form of Unasyn and vanco has been discontinued. Patient also continues on oral valtrex. Patient is eating with no reports of nausea or vomiting noted. Patient is weak and will have PT/OT evaluate. Case management and social work following. Possible ECF being planned. 08/25/2021 Patient is seen today and continues on IV unasyn and valtrex and ID following closely. Discussed with ID about requiring abx on discharge and unasyn being discontinued. Patient will need one week of valtrex and local wound care. No signs of worsening rash and patient denies itching. Patient son working on possible guardianship and social work following and working on possible ecf for a safe discharge plan. Awaiting PT/OT notes. Psychiatry consulted to evaluate mental capacity and depression as son is also concerned that his depression is not being treated properly. Vitamin b12 low and will start supplement. 08/26/2021 Patient is seen this morning and in no acute distress. On exam, patient needed constant redirection to avoid picking and scratching at the rash on the chest and patient was asking about when he will be going home and what medications he will continue on when discharged. ID and psychiatry following. Patient is continued on zoloft and tolerating thus far. Patient also continues on valtrex and Unasyn has been discontinued. WBC within normal limits and patient is afebrile. No reports of chest pain or shortness of breath. 08/27/2021 Patient is currently resting in the bed. Awake alert. Hard of hearing. Able to communicate minimally. Patient has been afebrile. Left upper chest wall rash is much improved. No purulent drainage or signs of post use noted. Antibiotics have been discontinued. Patient will be continued on valacyclovir. Patient will be continued on Zoloft as per psychiatric recommendations. Continue with vitamin B12 supplementation PTOT and will be discharged to rehab today. Physical examination Patient is sitting up in the bed comfortably, no acute distress, awake alert x1- 2. Hard of hearing. HEENT: Normocephalic. Neck is supple. Pupils reactive. Nostrils clear. Oral cavity is moist. Neck reveals no JVD, carotid bruits, or thyromegaly. CHEST EXAMINATION: Trachea is central. Symmetrical expansion. Lung villegas clear to auscultation and percussion. Patient does have left upper chest wall showing peeled off multiple scabs and redness. No new vesicular lesions.. open lesions noted due to picking with no surrounding redness or drainage noted CARDIAC: Normal S1, S2 with no gallops. No murmurs ABDOMEN: Soft. Bowel sounds normal. No organomegaly. No abdominal bruits. Extremities: reveal no edema. No clubbing or cyanosis Neurologically awake, alert, oriented x1 with well-coordinated movements. Hard of hearing. No gross focal deficits noted Skin: as mentioned above Psychiatric: Cooperative. Could not be assessed completely. Musculoskeletal: No joint swelling or deformity. Vital Signs - 24 hr 08/26/21 08/26/21 08/27/21 19:55 21:00 05:55 Temperature 99.0 F 98.3 F Pulse Rate [ 65 67 Pulse Oximetery ] Respiratory 16 16 18 Rate Blood Pressure 106/66 124/69 [Right Arm] O2 Sat by Pulse 96 97 Oximetry 08/27/21 08/27/21 08:15 11:34 Temperature 98.1 F Pulse Rate [ 68 68 Pulse Oximetery ] Respiratory 16 16 Rate Blood Pressure 118/68 [Right Arm] O2 Sat by Pulse 97 Oximetry Total time taken greater than 35 minutes including 18 minutes for counseling and coordination of care. Patient Condition at Discharge: Stable Plan - Discharge Summary New Discharge Prescriptions: New Cyanocobalamin [Vitamin B-12] 1,000 mcg PO DAILY #30 tablet valACYclovir HCL [Valtrex] 1,000 mg PO Q8HR #21 tab Sertraline [Zoloft] 25 mg PO DAILY #30 tab Discharge Medication List valACYclovir HCL [Valtrex] 1,000 mg PO Q8HR #21 tab 08/25/21 [Rx] Cyanocobalamin [Vitamin B-12] 1,000 mcg PO DAILY #30 tablet 08/27/21 [Rx] Sertraline [Zoloft] 25 mg PO DAILY #30 tab 08/27/21 [Rx] Follow up Appointment(s)/Referral(s): None,Stated [Primary Care Provider] - 1-2 days Discharge Disposition: TRANSFER TO SNF/ECF
== END 2021-08-27 16:30 | DRG 596 ==
LOC: EC 11:35 → 5NMEDONC 14:44
PROVIDERS: ADMIT Internal Medicine; ATTEND Internal Medicine
DX: B02.9 Zoster without complications (principal); E87.1 Hypo-osmolality and hyponatremia; E87.2 Acidosis; F33.1 Major depressive disorder, recurrent, moderate; J98.11 Atelectasis; L03.313 Cellulitis of chest wall; E53.8 Deficiency of other specified B group vitamins; E86.1 Hypovolemia; F03.90 Unspecified dementia, unspecified severity, without behavioral disturbance, psychotic disturbance, mood disturbance, and anxiety; F17.210 Nicotine dependence, cigarettes, uncomplicated; H91.90 Unspecified hearing loss, unspecified ear; J43.9 Emphysema, unspecified; R62.7 Adult failure to thrive; E55.9 Vitamin D deficiency, unspecified; L29.9 Pruritus, unspecified; R41.9 Unspecified symptoms and signs involving cognitive functions and awareness; Z20.822 Contact with and (suspected) exposure to COVID-19; Z79.899 Other long term (current) drug therapy
CPT/HCPCS: 36415; 71046; 80048; 80053; 82607; 82747; 83605; 84443; 85025; 85610; 85730; 87040; 87635; 93005; 96361; 96365; 96366; 96367; 99285